=== PATIENT | male | born 1990 | race Caucasian/White ===

== ENCOUNTER 2021-04-26 14:04 | Emergency (ER) | payer OTHER, SELFPAY ==
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
[2021-04-26 15:00] VITALS: BP 142/82; PULSE 77; RESP 16; TEMP 36.8; O2SAT 96; BMI 28.2
[2021-04-26 15:09] VITALS: BP 140/80; PULSE 77; RESP 16; TEMP 36.8; O2SAT 96
[2021-04-26 15:55] LABS: Hepatitis B Surface AB 223.5 (11.5-1000); Hepatitis B Surface Antigen Non-Reactive (Nonreactive); Hepatitis C Virus Antibody Non-Reactive (Nonreactive)
[2021-04-26 16:50] LABS: HIV 1 & 2 Antibody Non-Reactive (Non-Reactiv); HIV 1 & 2 Antigen Non-Reactive (Non-Reactiv)
== END 2021-04-26 15:10 | disposition home or self-care (01) ==
PROVIDERS: Emergency Provider Physician Assistant
DX: S61.231A Puncture wound without foreign body of left index finger without damage to nail, initial encounter (principal); W46.0XXA Contact with hypodermic needle, initial encounter; Y92.239 Unspecified place in hospital as the place of occurrence of the external cause; Y99.0 Civilian activity done for income or pay
CPT/HCPCS: 86706; 86803; 87340; 87806; 99282

== ENCOUNTER 2022-08-10 08:32 | Emergency (ER) | payer OTHER, SELFPAY ==
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
[2022-08-10] MEDS: tetanus-dipt-pertussis 0.5 mL SDV IM (09:06)
[2022-08-10 09:43] LABS: Hepatitis B Surface AB 202.2 (11.5-1000); Hepatitis B Surface Antigen Non-Reactive (Nonreactive); Hepatitis C Virus Antibody Non-Reactive (Nonreactive)
[2022-08-10 09:48] LABS: HIV 1 & 2 Antibody Non-Reactive (Non-Reactiv); HIV 1 & 2 Antigen Non-Reactive (Non-Reactiv)
== END 2022-08-10 09:17 | disposition home or self-care (01) ==
PROVIDERS: Emergency Provider Physician Assistant
DX: S61.552A Open bite of left wrist, initial encounter (principal); Y04.1XXA Assault by human bite, initial encounter; Y99.0 Civilian activity done for income or pay; Y92.239 Unspecified place in hospital as the place of occurrence of the external cause; Z23 Encounter for immunization
CPT/HCPCS: 36415; 86706; 86803; 87340; 87806; 90471; 90715; 99283